=== PATIENT | male | born 1995 | race Caucasian/White ===

== ENCOUNTER 2016-12-10 17:09 | Inpatient (IN) | payer MEDICAID, OTHER ==
[~2016-12-10 17:09] MED LIST: Iopamidol 370 76% 100 ML VIAL ONE
[2016-12-10] MEDS ORDERED: metroNIDAZOLE 500 MG/100 ML BAG ONE (18:06)
[2016-12-10] MEDS ORDERED: Fentanyl 100 MCG/2 ML VIAL ONE ×2 (18:13→21:10)
[2016-12-10 18:24] LABS: Hematocrit 42.6 % (42.0-52.0); Mean Platelet Volume 8.4 fL (7.4-10.4); Red Blood Cell (RBC) Count 4.47 mill/uL (4.00-5.20); White Blood Cell (WBC) Count 26.1 thou/uL (4.8-10.8)
[2016-12-10 18:28] LABS: Lactic Acid - Sepsis 3.4 mmol/L (0.5-2.2)
[2016-12-10 18:30] LABS: Bilirubin Negative (Negative); Blood, Urine Large (Negative); Glucose, Urine (Dipstick) Negative (Negative); Ketone, Urine Negative (Negative); Nitrite Negative (Negative); Protein, Urine (Dipstick) Negative (Neg-Trace); Urobilinogen 0.2 mg/dL (0.2-1.0)
[2016-12-10 18:30] LABS: PTT 30.8 SEC (22.9-36.1); Prothrombin Time 16.6 SEC (12.0-14.7)
[2016-12-10 18:31] LABS: Bacteria/HPF None Seen HPF (None Seen); RBC/HPF GREATER THAN 50-TNTC HPF (0-3); Squamous Epithelial 0-3 HPF (0-3)
[2016-12-10] MEDS ORDERED: Dextrose 50% Abboject 50 ML SYRINGE SLOW IVP PRN ×2 (18:32→18:33)
[2016-12-10] MEDS ORDERED: Dextrose 5% in Water 1,000 ML IV PRN ×2 (18:32→18:33)
[2016-12-10] MEDS ORDERED: Ondansetron HCl/PF 4 MG/2 ML Vial IVP PRN ×2 (18:33→20:43)
[2016-12-10 18:34] LABS: ALT (SGPT) 21 U/L (8-55); AST (SGOT) 35 U/L (5-34); Alkaline Phosphatase 66 U/L (Less than 750); Anion Gap 13 mmol/L (10-20); BUN (Urea Nitrogen) 11 mg/dL (8.9-20.6); Bilirubin, Total 1.5 mg/dL (0.2-1.2); Calc. Creatinine Clearance 0 mL/min (70-130); Calcium 8.3 mg/dL (7.8-10.44); Carbon Dioxide 24 mmol/L (22-29); Chloride 103 mmol/L (98-107); Estimated GFR-MDRD Greater than 90; Globulin 2.6 g/dL (2.4-3.5); Lipase 7 U/L (8-78); Protein, Total 6.5 g/dL (6.0-8.3)
[2016-12-10] MEDS ORDERED: Zolpidem Tartrate 5 MG TAB PO PRN (18:35)
[2016-12-10] MEDS ORDERED: diphenhydrAMINE HCl 50 MG/ML 1 ML VIAL IM PRN (18:35)
[2016-12-10] MEDS ORDERED: diphenhydrAMINE HCl 25 MG CAP PO PRN (18:35)
[2016-12-10] MEDS ORDERED: Naloxone HCl 0.4 mg/ml Vial IV PRN (18:35)
[2016-12-10 18:39] LABS: Band 18 % (5-11); Neutrophil 71 % (31-61)
[2016-12-10] MEDS ORDERED: ePHEDrine/0.9% NaCl/PF SYRINGE 50 mg/10 ml ONE (18:41)
[2016-12-10] MEDS ORDERED: Succinylcholine Chloride 20 MG/ML 10 ml SYRINGE FS ONE (18:41)
[2016-12-10] MEDS ORDERED: PHENYLEPHRINE-NS 100 MCG/ML 10 ML SYRINGE ONE (18:41)
[2016-12-10] MEDS ORDERED: Propofol 200 MG/20 ML VIAL ONE ×2 (18:41)
[2016-12-10] MEDS ORDERED: Ondansetron HCl/PF 4 MG/2 ML Vial ONE (18:41)
[2016-12-10] MEDS ORDERED: Communication Order-Pharmacy FS SCH (18:45)
[2016-12-10 18:46] LABS: Hyaline Casts/LPF 0-3 HYALINE CAST LPF (0-3 Hyaline)
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
[2016-12-10] MEDS ORDERED: Promethazine HCl 25 MG/ML VIAL IM PRN (20:43)
[2016-12-10] MEDS ORDERED: Promethazine HCl 25 MG/ML VIAL SLOW IVP PRN (20:43)
[2016-12-10] MEDS ORDERED: HYDROmorphone HCl/PF 0.1 MG/ML 100 ML ONE (21:11)
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
[2016-12-10] MEDS: Sodium Chloride 0.9% 1,000 ML IV SCH (22:30)
[2016-12-10 22:32] VITALS: BMI 21.8
[2016-12-11] MEDS: Ketorolac Tromethamine 30 MG/ML VIAL IVP SCH ×4 (00:06→17:40)
[2016-12-11 05:21] LABS: #Lymphocytes 1.2 thou/uL (1.20-3.40); #Monocytes 1.1 thou/uL (0.11-0.59); #Neutrophils 8.3 thou/uL (1.40-6.50); %Basophils 0.2 % (0.0-1.0); %Eosinophils 0.2 % (0.0-10.0); %Lymphocytes 11.6 % (28.0-48.0); %Monocytes 10.4 % (0.0-4.0); Hematocrit 38.3 % (42.0-52.0); Mean Platelet Volume 8.4 fL (7.4-10.4); Red Blood Cell (RBC) Count 4.05 mill/uL (4.00-5.20); White Blood Cell (WBC) Count 10.7 thou/uL (4.8-10.8)
[2016-12-11] MEDS: Sodium Chloride 0.9% 1,000 ML IV SCH ×4 (05:23→21:03)
[2016-12-11 05:29] LABS: Anion Gap 13 mmol/L (10-20); BUN (Urea Nitrogen) 9 mg/dL (8.9-20.6); Calc. Creatinine Clearance 160 mL/min (70-130); Calcium 7.8 mg/dL (7.8-10.44); Carbon Dioxide 22 mmol/L (22-29); Chloride 104 mmol/L (98-107); Estimated GFR-MDRD Greater than 90
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
[2016-12-11] MEDS: Ondansetron HCl/PF 4 MG/2 ML Vial IVP PRN ×2 (11:15→17:50)
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
[2016-12-11] MEDS ORDERED: Piperacillin/Tazobactam 3.375 GM in Sodium Chloride 0.9% 100 ML IVPB SCH ×2 (12:00→13:00)
[2016-12-11] MEDS: Piperacillin/Tazobactam 3.375 GM in Sodium Chloride 0.9% 100 ML IVPB SCH (17:41)
[2016-12-11] MEDS: HYDROmorphone 10 mg/100 ml CADD IVPB PRN (21:38)
[2016-12-12] MEDS: Ketorolac Tromethamine 30 MG/ML VIAL IVP SCH ×5 (00:26→23:34)
[2016-12-12] MEDS: Piperacillin/Tazobactam 3.375 GM in Sodium Chloride 0.9% 100 ML IVPB SCH ×5 (00:28→23:34)
[2016-12-12] MEDS: Sodium Chloride 0.9% 1,000 ML IV SCH ×5 (03:38→23:43)
[2016-12-12] MEDS: Ondansetron HCl/PF 4 MG/2 ML Vial IVP PRN ×2 (05:46→17:31)
--- NOTE | 2016-12-12 10:27 | PRG ---
DATE OF SERVICE: 12/12/2016 SUBJECTIVE: Mr. Leo Gardner in his hospital room this morning. He has been transferred out of [facility] ICU to the general floor care. He is on spine precautions. Mr. Gardner was feeling a little bit better. He still has good sensation of motion all the way down to his toes. His joint position se nse is preserved on my examination. His vitals looks stable to me. My plan for Mr. Gardner is to go to the operating room to fix his lumbar burst fracture on Wednesday. Until then, he can be tilted in a reverse Trendelenburg, but no flexion at the hip. We will make h im n.p.o. on Wednesday night after midnight.
[2016-12-12] MEDS: Promethazine HCl 25 MG/ML VIAL IM PRN (17:41)
[2016-12-12] MEDS: HYDROmorphone 10 mg/100 ml CADD IVPB PRN (17:51)
[2016-12-12] MEDS: diphenhydrAMINE HCl 50 MG/ML 1 ML VIAL IVP PRN (20:25)
[2016-12-13 06:14] LABS: Anion Gap 12 mmol/L (10-20); BUN (Urea Nitrogen) 6 mg/dL (8.9-20.6); Calc. Creatinine Clearance 153 mL/min (70-130); Calcium 8.2 mg/dL (7.8-10.44); Carbon Dioxide 24 mmol/L (22-29); Chloride 104 mmol/L (98-107); Estimated GFR-MDRD Greater than 90; Magnesium 1.6 mg/dL (1.7-2.2); Phosphorus 3.1 mg/dL (2.3-4.7)
[2016-12-13] MEDS: Piperacillin/Tazobactam 3.375 GM in Sodium Chloride 0.9% 100 ML IVPB SCH ×3 (06:21→18:46)
[2016-12-13] MEDS: diphenhydrAMINE HCl 50 MG/ML 1 ML VIAL IVP PRN ×3 (06:22→23:31)
[2016-12-13] MEDS: Sodium Chloride 0.9% 1,000 ML IV SCH ×3 (06:26→17:59)
[2016-12-13 06:32] LABS: #Eosinphils 0.2 thou/uL (0.0-0.7); #Lymphocytes 1.7 thou/uL (1.20-3.40); #Monocytes 0.5 thou/uL (0.11-0.59); #Neutrophils 3.4 thou/uL (1.40-6.50); %Basophils 0.7 % (0.0-1.0); %Eosinophils 2.6 % (0.0-10.0); %Lymphocytes 29.5 % (28.0-48.0); %Monocytes 8.8 % (0.0-4.0); Hematocrit 34.5 % (42.0-52.0); Mean Platelet Volume 8.5 fL (7.4-10.4); Red Blood Cell (RBC) Count 3.67 mill/uL (4.00-5.20); White Blood Cell (WBC) Count 5.8 thou/uL (4.8-10.8)
[2016-12-13] MEDS ORDERED: Magnesium Sulfate 4 GM in Sodium Chloride 0.9% 250 ML 250 ML IVPB SCH (08:00)
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
[2016-12-13] MEDS: Ondansetron HCl/PF 4 MG/2 ML Vial IVP PRN (10:31)
[2016-12-13] MEDS ORDERED: Ketorolac Tromethamine 30 MG/ML VIAL IVP SCH ×2 (16:45→18:00)
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
[2016-12-13] MEDS: HYDROmorphone 10 mg/100 ml CADD IVPB PRN (17:44)
[2016-12-13] MEDS: Promethazine HCl 25 MG/ML VIAL IM PRN (23:34)
[2016-12-13] MEDS ORDERED: Famotidine/PF 20 mg/2ml Vial SLOW IVP SCH (23:45)
[2016-12-14] MEDS: Piperacillin/Tazobactam 3.375 GM in Sodium Chloride 0.9% 100 ML IVPB SCH ×5 (00:52→23:27)
[2016-12-14] MEDS: diphenhydrAMINE HCl 50 MG/ML 1 ML VIAL IVP PRN (05:18)
[2016-12-14] MEDS: Promethazine HCl 25 MG/ML VIAL IM PRN (05:19)
[2016-12-14] MEDS: Sodium Chloride 0.9% 1,000 ML IV SCH ×3 (05:20→21:27)
[2016-12-14 05:57] LABS: #Eosinphils 0.1 thou/uL (0.0-0.7); #Monocytes 0.5 thou/uL (0.11-0.59); #Neutrophils 3.2 thou/uL (1.40-6.50); %Basophils 0.6 % (0.0-1.0); %Eosinophils 2.5 % (0.0-10.0); %Lymphocytes 20.3 % (28.0-48.0); %Monocytes 10.4 % (0.0-4.0); Hematocrit 36.1 % (42.0-52.0); Mean Platelet Volume 8.3 fL (7.4-10.4); Red Blood Cell (RBC) Count 3.89 mill/uL (4.00-5.20); White Blood Cell (WBC) Count 4.8 thou/uL (4.8-10.8)
[2016-12-14 06:18] LABS: Anion Gap 18 mmol/L (10-20); BUN (Urea Nitrogen) 9 mg/dL (8.9-20.6); Calc. Creatinine Clearance 166 mL/min (70-130); Calcium 8.5 mg/dL (7.8-10.44); Carbon Dioxide 20 mmol/L (22-29); Chloride 101 mmol/L (98-107); Estimated GFR-MDRD Greater than 90; Magnesium 1.8 mg/dL (1.7-2.2); Phosphorus 3.7 mg/dL (2.3-4.7)
[2016-12-14] MEDS ORDERED: Sodium Chloride 0.9% 10 ML ONE (06:23)
[2016-12-14] MEDS ORDERED: Bacitracin Zinc Ointment 30 gm TUBE ONE (06:24)
[2016-12-14] MEDS ORDERED: Thrombin 5000 UNITS/5 ML VIAL ONE (06:24)
[2016-12-14] MEDS ORDERED: Fentanyl 100 MCG/2 ML VIAL ONE ×2 (07:03)
[2016-12-14] MEDS ORDERED: Ondansetron HCl/PF 4 MG/2 ML Vial ONE ×2 (07:40→10:52)
[2016-12-14] MEDS ORDERED: Vecuronium 10 MG VIAL ONE (07:40)
[2016-12-14] MEDS ORDERED: Metoclopramide HCl 10 MG/2 ML VIAL ONE (07:40)
[2016-12-14] MEDS ORDERED: Propofol 200 MG/20 ML VIAL ONE (07:40)
[2016-12-14] MEDS ORDERED: Glycopyrrolate 0.2 MG/ML 5 ML SYRINGE ONE (07:40)
[2016-12-14] MEDS ORDERED: Dexamethasone 20 MG/5 ML VIAL ONE (07:40)
[2016-12-14] MEDS ORDERED: Ketorolac Tromethamine 30 MG/ML VIAL ONE (07:40)
[2016-12-14] MEDS ORDERED: Lidocaine 1% PF 5 ML VIAL ONE (07:40)
[2016-12-14] MEDS ORDERED: diphenhydrAMINE HCl 50 MG/ML 1 ML VIAL ONE (07:40)
[2016-12-14] MEDS: Famotidine/PF 20 mg/2ml Vial SLOW IVP SCH ×2 (09:00→16:49)
[2016-12-14] MEDS ORDERED: HYDROmorphone HCl/PF 0.1 MG/ML 100 ML ONE (14:18)
[2016-12-14] MEDS ORDERED: Ondansetron HCl/PF 4 MG/2 ML Vial IVP PRN (14:49)
[2016-12-14] MEDS ORDERED: Promethazine HCl 25 MG/ML VIAL SLOW IVP PRN (14:49)
[2016-12-14] MEDS ORDERED: Promethazine HCl 25 MG/ML VIAL IM PRN (14:49)
[2016-12-14] MEDS: ceFAZolin Sodium 1 GM VIAL SLOW IVP SCH ×2 (16:49→21:20)
[2016-12-14] MEDS ORDERED: Cepastat Lozenges 1 LOZ PO PRN (23:10)
[2016-12-15] MEDS: Sodium Chloride 0.9% 1,000 ML IV SCH ×2 (02:34→11:22)
[2016-12-15] MEDS: ceFAZolin Sodium 1 GM VIAL SLOW IVP SCH ×2 (05:46→16:49)
[2016-12-15 06:14] LABS: #Eosinphils 0.1 thou/uL (0.0-0.7); #Lymphocytes 1.5 thou/uL (1.20-3.40); #Monocytes 1.1 thou/uL (0.11-0.59); #Neutrophils 5.1 thou/uL (1.40-6.50); %Basophils 0.5 % (0.0-1.0); %Eosinophils 0.9 % (0.0-10.0); %Lymphocytes 19.1 % (28.0-48.0); %Monocytes 13.8 % (0.0-4.0); Hematocrit 30.1 % (42.0-52.0); Red Blood Cell (RBC) Count 3.25 mill/uL (4.00-5.20); White Blood Cell (WBC) Count 7.8 thou/uL (4.8-10.8)
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
[2016-12-15 06:36] LABS: Anion Gap 14 mmol/L (10-20); BUN (Urea Nitrogen) 10 mg/dL (8.9-20.6); Calc. Creatinine Clearance 174 mL/min (70-130); Calcium 8.3 mg/dL (7.8-10.44); Carbon Dioxide 24 mmol/L (22-29); Chloride 100 mmol/L (98-107); Estimated GFR-MDRD Greater than 90; Magnesium 1.6 mg/dL (1.7-2.2); Phosphorus 2.9 mg/dL (2.3-4.7)
[2016-12-15] MEDS: Piperacillin/Tazobactam 3.375 GM in Sodium Chloride 0.9% 100 ML IVPB SCH ×3 (06:46→22:49)
[2016-12-15] MEDS ORDERED: SODIUM PHOSPHATE IVPB SCH (07:15)
[2016-12-15] MEDS ORDERED: Magnesium Sulfate 4 GM, Admixture Fee 1 EACH in Sodium Chloride 0.9% 250 ML 250 ML IVPB SCH (07:15)
[2016-12-15] MEDS ORDERED: ADMIXTURE FEE IVPB SCH (07:15)
[2016-12-15] MEDS ORDERED: SODIUM CHLORIDE IVPB SCH (07:15)
[2016-12-15] MEDS: HYDROmorphone 10 mg/100 ml CADD IVPB PRN (08:53)
[2016-12-15] MEDS: Famotidine/PF 20 mg/2ml Vial SLOW IVP SCH ×2 (09:16→21:15)
--- NOTE | 2016-12-15 09:39 | RAD ---
2 VIEWS OF ABDOMEN: Date: 12/15/16 COMPARISON: None. HISTORY: Ileus. FINDINGS: Supine and decubitus views of the abdomen show a nonspecific, nonobstructed bowel gas pattern. Air i s seen within the colon and loops of small bowel. No free air is seen on the decubitus exam. Postsur gical changes are seen in the spine. IMPRESSION: Nonobstructive bowel gas pattern. POS: [facility]
[2016-12-15] MEDS: Promethazine HCl 25 MG/ML VIAL IM PRN (10:20)
--- NOTE | 2016-12-15 14:13 | ULT ---
BILATERAL LOWER EXTREMITY VENOUS ULTRASOUND: Comparison: None. History: Bilateral lower extremity edema and pain. Technique: Multiplanar grayscale and color doppler images were obtained in a bilateral lower extremi ty venous ultrasound. Spectral analysis of the doppler waveforms were performed. FINDINGS: Bilateral common femoral veins, profunda femoral veins, superficial femoral veins, and popliteal vei ns are normal in appearance without visible thrombus. These vessels demonstrate normal compression, flow and augmentation. The posterior tibial veins and greater saphenous veins are also patent. IMPRESSION: No evidence of DVT. POS: [facility]
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
[2016-12-15] MEDS: diphenhydrAMINE HCl 50 MG/ML 1 ML VIAL IVP PRN (17:22)
[2016-12-15] MEDS ORDERED: HYDROmorphone 10 mg/100 ml CADD IVPB PRN (18:37)
[2016-12-15] MEDS: HYDROcodone/Acetaminophen 10/325 mg Tablet PO SCH (21:14)
[2016-12-16] MEDS: diphenhydrAMINE HCl 50 MG/ML 1 ML VIAL IVP PRN (00:41)
[2016-12-16] MEDS: HYDROcodone/Acetaminophen 10/325 mg Tablet PO SCH ×6 (00:42→20:43)
[2016-12-16] MEDS: ceFAZolin Sodium 1 GM VIAL SLOW IVP SCH ×3 (00:43→17:47)
[2016-12-16] MEDS: Piperacillin/Tazobactam 3.375 GM in Sodium Chloride 0.9% 100 ML IVPB SCH ×2 (05:10)
[2016-12-16 08:21] LABS: Magnesium 1.8 mg/dL (1.7-2.2); Phosphorus 3.7 mg/dL (2.3-4.7)
[2016-12-16] MEDS ORDERED: Bisacodyl 10 MG SUPP PR PRN (08:21)
[2016-12-16 08:26] LABS: ALT (SGPT) 52 U/L (8-55); AST (SGOT) 91 U/L (5-34); Alkaline Phosphatase 49 U/L (Less than 750); Anion Gap 16 mmol/L (10-20); BUN (Urea Nitrogen) 11 mg/dL (8.9-20.6); Bilirubin, Total 1.4 mg/dL (0.2-1.2); Calc. Creatinine Clearance 166 mL/min (70-130); Calcium 8.9 mg/dL (7.8-10.44); Carbon Dioxide 24 mmol/L (22-29); Chloride 98 mmol/L (98-107); Estimated GFR-MDRD Greater than 90; Globulin 3.2 g/dL (2.4-3.5); Protein, Total 6.8 g/dL (6.0-8.3)
[2016-12-16] MEDS ORDERED: Senokot 8.6 MG TAB PO SCH (08:30)
[2016-12-16 08:38] LABS: Mean Platelet Volume 7.8 fL (7.4-10.4); Red Blood Cell (RBC) Count 3.55 mill/uL (4.00-5.20); White Blood Cell (WBC) Count 6.7 thou/uL (4.8-10.8)
[2016-12-16 08:56] LABS: Band 1 % (5-11); Neutrophil 63 % (31-61)
--- NOTE | 2016-12-16 09:13 | PRG ---
DATE OF SERVICE: 12/16/2016 Mr. Gardner is postoperative day 2 from lumbar decompression and stabilization of fracture with scr ew merlin fixation. He did stand yesterday. He had some right lateral lower leg pain. I suspect this is radicular right L5 nerve root inflammation. His fracture fragment was more prominent on the rig ht side. His strength is good throughout all bilateral lower extremity myotomes. He denies pain in the legs today. He does appear much more comfortable than he did yesterday. His drain output was 150 mL so we will leave it in place at this time. I would be fine with initiation of Lovenox. We w ill continue to mobilize Mr. Gardner.
[2016-12-16] MEDS: Enoxaparin Sodium 40 MG/0.4 ML SYRINGE SC SCH (09:56)
[2016-12-16] MEDS: Famotidine/PF 20 mg/2ml Vial SLOW IVP SCH (09:57)
[2016-12-16] MEDS: Sodium Chloride 0.9% 1,000 ML IV SCH ×2 (09:58→11:18)
[2016-12-16] MEDS: Polyethylene Glycol 3350 17 GM Packet PO PRN (13:42)
[2016-12-16] MEDS: Gabapentin 300 MG CAP PO SCH (20:44)
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
[2016-12-17] MEDS: HYDROcodone/Acetaminophen 10/325 mg Tablet PO SCH ×6 (01:17→20:22)
[2016-12-17] MEDS: ceFAZolin Sodium 1 GM VIAL SLOW IVP SCH ×3 (01:18→16:26)
[2016-12-17] MEDS: Polyethylene Glycol 3350 17 GM Packet PO PRN (04:50)
[2016-12-17 05:20] LABS: #Eosinphils 0.2 thou/uL (0.0-0.7); #Lymphocytes 1.3 thou/uL (1.20-3.40); #Monocytes 0.9 thou/uL (0.11-0.59); #Neutrophils 4.4 thou/uL (1.40-6.50); %Basophils 0.1 % (0.0-1.0); %Eosinophils 3.1 % (0.0-10.0); %Lymphocytes 18.3 % (28.0-48.0); %Monocytes 13.6 % (0.0-4.0); Hematocrit 36.2 % (42.0-52.0); Mean Platelet Volume 7.6 fL (7.4-10.4); White Blood Cell (WBC) Count 6.8 thou/uL (4.8-10.8)
[2016-12-17 05:36] LABS: Anion Gap 17 mmol/L (10-20); BUN (Urea Nitrogen) 12 mg/dL (8.9-20.6); Calc. Creatinine Clearance 160 mL/min (70-130); Calcium 9.3 mg/dL (7.8-10.44); Carbon Dioxide 25 mmol/L (22-29); Chloride 97 mmol/L (98-107); Estimated GFR-MDRD Greater than 90; Magnesium 2.2 mg/dL (1.7-2.2); Phosphorus 4.2 mg/dL (2.3-4.7)
[2016-12-17] MEDS: Enoxaparin Sodium 40 MG/0.4 ML SYRINGE SC SCH (10:00)
[2016-12-17] MEDS: Bisacodyl 10 MG SUPP PR SCH (10:00)
[2016-12-17] MEDS: Gabapentin 300 MG CAP PO SCH ×3 (10:00→20:20)
--- NOTE | 2016-12-17 14:11 | PRG ---
DATE OF SERVICE: 12/17/2016 SUBJECTIVE: Jj is postoperative day 3 from stabilization of unstable L4 fracture with decompr ession of the cauda equina. He has had no leg pain. His back pain is improving. He is having some difficulty with orthostasis when he stands. I should note his hemoglobin is 12. Her strength is e xcellent throughout his lower extremity myotomes. His drain output has diminished. We will remove his drain today. I would be fine with transfer to rehabilitation or work whatever the appropriate d isposition is at any time.
[2016-12-17] MEDS: Senokot 8.6 MG TAB PO SCH (20:21)
[2016-12-18] MEDS: ceFAZolin Sodium 1 GM VIAL SLOW IVP SCH ×2 (00:26→09:41)
[2016-12-18] MEDS: HYDROcodone/Acetaminophen 10/325 mg Tablet PO SCH ×6 (00:26→20:53)
[2016-12-18] MEDS ORDERED: Cyclobenzaprine 10 MG TAB PO SCH (09:30)
[2016-12-18] MEDS: HYDROcodone/Acetaminophen 10/325 mg Tablet PO PRN ×2 (09:40→15:43)
[2016-12-18] MEDS: Gabapentin 300 MG CAP PO SCH ×3 (09:40→20:54)
[2016-12-18] MEDS: Enoxaparin Sodium 40 MG/0.4 ML SYRINGE SC SCH (09:40)
--- NOTE | 2016-12-18 10:55 | PRG ---
DATE OF SERVICE: 12/18/2016 Leo is now postoperative day #4, having undergone an L3 through L5 posterior lumbar fusion for stab ilization of L4 burst fracture. The patient continues to improve postoperatively. He did have a keerthi wel movement yesterday which he states has helped with some abdominal fullness. He denies any furth er leg pain and the right lateral calf pain he experienced 2-3 days ago has completely resolved. He has been walking with therapies in his TLSO brace. He has full strength in the bilateral lower extremities with intact sensation to light touch through out. His incision is uncovered and covered with zach. I have redress the incision as well as removed his KELLY drain today. It was removed without difficulty. I would like his incision to remain covered during the day and uncovered at night. He may continue to work with therapies as long as he is in his TLSO brace when he is sitting or when out of bed. He is stable from a neurosurgical standpoint to be discharged to inpatient rehab at any time. We wi ll schedule appropriate followup outpatient clinic appointments, but his zach will need to be rem germán 2 weeks postoperatively. We will continue to follow the patient. Please call with any changes in neurologic status. It should also be noted that the patient does complain of some sharp, stabbing, intermittent right p aracervical pain. He states he may have slept on his neck incorrectly and denies current arm pain. We will monitor this neck pain.
[2016-12-18] MEDS: Bisacodyl 10 MG SUPP PR SCH (13:46)
[2016-12-18] MEDS ORDERED: Cyclobenzaprine 10 MG TAB PO PRN (16:09)
[2016-12-18] MEDS: Senokot 8.6 MG TAB PO SCH (20:54)
[2016-12-19] MEDS: HYDROcodone/Acetaminophen 10/325 mg Tablet PO SCH ×6 (00:39→20:29)
[2016-12-19] MEDS: Bisacodyl 10 MG SUPP PR SCH (10:07)
[2016-12-19] MEDS: Gabapentin 300 MG CAP PO SCH ×3 (10:07→20:30)
[2016-12-19] MEDS: Enoxaparin Sodium 40 MG/0.4 ML SYRINGE SC SCH (10:08)
--- NOTE | 2016-12-19 10:48 | PRG ---
DATE OF SERVICE: 12/19/2016 This is Leno Perales PA-C dictating for Adis Camacho M.D. This is a subsequent inpatient progress note. Leo is now postoperative day 5, having undergone L3-5 posterior lumbar fusion for unstable L4 burst fracture. Patient is currently sitting up in a chair with his TLSO brace on. He denies any pain c omplaints at this time. The posterior right-sided neck pain he experienced yesterday has completely resolved. He again has no leg pain. He has been up walking and is tolerating this well. He remai ns at neurologic baseline with good strength in the bilateral lower extremities. Trauma colleagues are attending, but the plan is to discharge the patient home, perhaps with home health as early as t emerita. From a neurosurgical standpoint, he is stable for discharge. He needs to wear his brace when he is out of bed and we will schedule appropriate outpatient followup. His drain was removed yeste rday and he tolerated this procedure well. Please call with any changes in the patient's neurologic baseline otherwise. Neurosurgery will sign off at this time.
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
[2016-12-19] MEDS: Senokot 8.6 MG TAB PO SCH (20:29)
[2016-12-20] MEDS: HYDROcodone/Acetaminophen 10/325 mg Tablet PO SCH ×4 (00:40→13:36)
[2016-12-20] MEDS: Gabapentin 300 MG CAP PO SCH (08:55)
[2016-12-20] MEDS: Enoxaparin Sodium 40 MG/0.4 ML SYRINGE SC SCH (08:55)
[2016-12-20] MEDS: Bisacodyl 10 MG SUPP PR SCH (08:56)
[2016-12-20 14:28] VITALS: BP 110/74; TEMP 98.1
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
[2016-12-20] MEDS ORDERED: FLU VACC QS2017-18 36 mo. & older 0.5 ML SYRINGE IM ONE (21:00)
== END 2016-12-20 15:00 | disposition home or self-care (01) | DRG 459 ==
LOC: ERS 17:09 → CCU 21:34 → SURG A 12-12 08:02
PROVIDERS: ADMIT Surgery; ATTEND Surgery
PROC: 0DQB0ZZ Repair Ileum, Open Approach (ICD-10-PCS; 2016-12-10)
PROC: 0W9G0ZZ Drainage of Peritoneal Cavity, Open Approach (ICD-10-PCS; 2016-12-10)
PROC: 0DQU0ZZ Repair Omentum, Open Approach (ICD-10-PCS; 2016-12-10)
PROC: 0DQV0ZZ Repair Mesentery, Open Approach (ICD-10-PCS; 2016-12-10)
PROC: 0DBA0ZZ Excision of Jejunum, Open Approach (ICD-10-PCS; 2016-12-10)
PROC: 0DHA3UZ Insertion of Feeding Device into Jejunum, Percutaneous Approach (ICD-10-PCS; 2016-12-10)
PROC: 0SG1071 Fusion of 2 or more Lumbar Vertebral Joints with Autologous Tissue Substitute, Posterior Approach, Posterior Column, Open Approach (ICD-10-PCS; principal; 2016-12-14)
PROC: 01NB0ZZ Release Lumbar Nerve, Open Approach (ICD-10-PCS; 2016-12-14)
PROC: 0SB20ZZ Excision of Lumbar Vertebral Disc, Open Approach (ICD-10-PCS; 2016-12-14)
PROC: 0QH004Z Insertion of Internal Fixation Device into Lumbar Vertebra, Open Approach (ICD-10-PCS; 2016-12-14)
PROC: 8E0WXBF Computer Assisted Procedure of Trunk Region, With Fluoroscopy (ICD-10-PCS; 2016-12-14)
DX: S32.041A Stable burst fracture of fourth lumbar vertebra, initial encounter for closed fracture (principal); K65.0 Generalized (acute) peritonitis; S36.498A Other injury of other part of small intestine, initial encounter; S06.0X9A Concussion with loss of consciousness of unspecified duration, initial encounter; E83.42 Hypomagnesemia; S39.011A Strain of muscle, fascia and tendon of abdomen, initial encounter; S30.1XXA Contusion of abdominal wall, initial encounter; V49.40XA Driver injured in collision with unspecified motor vehicles in traffic accident, initial encounter; Y92.410 Unspecified street and highway as the place of occurrence of the external cause
CPT/HCPCS: 36415; 36416; 51702; 70450; 71260; 72125; 74020; 74177; 76001; 80048; 80053; 81003; 81015; 83605; 83690; 83735; 84100; 85025; 85610; 85730; 86850; 86900; 86901; 88307; 90471; 93970; 96365; 99292; A4216; C1713; C1768; G0390; G8978-GP-CM; G8979-GP-CI; G8987-GO-CM; G8988-GO-CJ; J0131; J0690; J1100; J1170; J1200; J1650; J1885; J2001; J2405; J2543; J2550; J2704; J2765; J3010; J3370; J3475; J3490; J7050; L0639; S0028

== ENCOUNTER 2017-03-08 12:38 | Outpatient (CLI) | payer OTHER ==
--- NOTE | 2017-03-08 14:54 | RAD ---
TWO VIEWS LUMBAR SPINE: Date: 03-08-17 Comparison: 01-27-17 History: Re-evaluate lumbar spine, surgery, prior trauma. FINDINGS: Assuming five lumbar type vertebral bodies, bilateral L3, L4, and L5 pedicle screws are present with vertically oriented interlocking rods. Post-operative hardware is stable. No evidence for hardware fa ilure. There is a fracture involving the L4 vertebral body with mild anterior vertebral body height loss as well as irregularity involving the superior endplate and the ventral aspect of the L4 vertebral body, stable. No new findings. IMPRESSION: Stable post-operative changes associated with an L4 vertebral body fracture. POS: [facility]
== END 2017-03-08 12:39 | disposition home or self-care (01) ==
LOC: TBSIIMAG 12:38
PROVIDERS: ATTEND Surgery
DX: S34.3XXA Injury of cauda equina, initial encounter (principal); S32.049D Unspecified fracture of fourth lumbar vertebra, subsequent encounter for fracture with routine healing
CPT/HCPCS: 72100